=== PATIENT | female | born 1970 | race Caucasian/White ===

== ENCOUNTER 2024-11-22 20:04 | Emergency (ER) | payer BC ==
[~2024-11-22] VITALS: Ht 160 cm; Wt 52.0 kg
[2024-11-22 20:08] VITALS: BP 159/86; PULSE 98; RESP 18; TEMP 36.7; O2SAT 99
[2024-11-22 20:50] LABS: HEMATOCRIT. 36.2 % (36.0-48.0); HEMOGLOBIN. 12.5 g/dL (12.0-16.0); MEAN CORPUSCULAR HEMOGLOBIN 32.5 pg (28.0-32.0); MEAN CORPUSCULAR HGB CONC 34.5 g/dL (31.0-37.0); MEAN CORPUSCULAR VOLUME 94.3 fL (81.0-99.0); MEAN PLATELET VOLUME 7.1 fl (7.4-10.4); PLATELET 270 x1000/uL (130-400); RED BLOOD CELL COUNT 3.84 mill/uL (4.2-5.4); RED CELL DISTRIBUTION WIDTH 12.9 % (11.6-14.6)
[2024-11-22 20:52] LABS: DIFFERENTIAL COMMENT 1
[2024-11-22 20:58] LABS: CHLORIDE 102 mEq/L (98-107); POTASSIUM 3.7 mEq/L (3.5-5.1); SODIUM 137 mEq/L (136-145)
[2024-11-22 20:59] LABS: CARBON DIOXIDE 26 mEq/L (21-32)
[2024-11-22 21:00] LABS: CALCIUM 9.5 mg/dL (8.7-10.4)
[2024-11-22 21:04] LABS: CREATININE 0.7 mg/dL (0.6-1.0); GLUCOSE 103 mg/dL (70-105)
[2024-11-22 21:05] LABS: UREA NITROGEN BLOOD 9 mg/dL (9-23)
[2024-11-22 21:06] LABS: TROPONIN I HIGH SENSITIVITY < 4 ng/L (3.0-34)
[2024-11-22 21:12] LABS: PLATELET ESTIMATE NORMAL
== END 2024-11-22 21:21 | disposition left against medical advice (07) ==
LOC: ER 20:30
DX: R07.89 Other chest pain (principal); Z53.21 Procedure and treatment not carried out due to patient leaving prior to being seen by health care provider
CPT/HCPCS: 36415; 80048; 84484; 85025; 93005

== ENCOUNTER 2024-11-25 01:42 | Emergency (ER) | payer BC ==
[~2024-11-25] VITALS: Ht 157.5 cm; Wt 52.0 kg
[2024-11-25 02:06] VITALS: BP 141/89; PULSE 109; RESP 18; TEMP 36.5; O2SAT 98
[2024-11-25] MEDS: HYDROXYZINE 25MG TABLET PO ONE (02:32)
[2024-11-25 02:45] LABS: HEMOGLOBIN. 12.6 g/dL (12.0-16.0); MEAN CORPUSCULAR HEMOGLOBIN 31.6 pg (28.0-32.0); MEAN CORPUSCULAR HGB CONC 34.1 g/dL (31.0-37.0); MEAN CORPUSCULAR VOLUME 92.6 fL (81.0-99.0); MEAN PLATELET VOLUME 7.1 fl (7.4-10.4); PLATELET 275 x1000/uL (130-400); WHITE BLOOD COUNT 4.6 x1000/uL (4.5-11.0)
[2024-11-25 02:46] LABS: DIFFERENTIAL COMMENT 1
[2024-11-25 02:56] LABS: CHLORIDE 105 mEq/L (98-107); POTASSIUM 3.7 mEq/L (3.5-5.1); SODIUM 138 mEq/L (136-145)
[2024-11-25 02:57] LABS: CARBON DIOXIDE 25 mEq/L (21-32)
[2024-11-25 03:02] LABS: CREATININE 0.6 mg/dL (0.6-1.0); GLUCOSE 120 mg/dL (70-105); UREA NITROGEN BLOOD 8 mg/dL (9-23)
[2024-11-25 03:04] LABS: TROPONIN I HIGH SENSITIVITY < 4 ng/L (3.0-34)
[2024-11-25 07:57] LABS: PLATELET ESTIMATE NORMAL
== END 2024-11-25 02:32 | disposition left against medical advice (07) ==
LOC: ER 01:42
DX: F41.0 Panic disorder [episodic paroxysmal anxiety] (principal); Z88.0 Allergy status to penicillin; Z79.899 Other long term (current) drug therapy
CPT/HCPCS: 36415; 80048; 84484; 85025; 93005; 99284